=== PATIENT | female | born 1970 | race Caucasian/White ===

== ENCOUNTER → 2020-08-15 | Outpatient (CLI) | payer OTHER ==
[~2020-08-15] MED LIST: ALEVE220 MG PO; BUPROPION HCL200 MG PO; LAMOTRIGINE25 MG PO; SYNTHROID50 MCG PO; TESTOSTERONE CMPD PO; VITAMIN D310 MCG PO
== END ==
LOC: LAB 10:11
PROVIDERS: Orthopaedic Surgery; ATTEND Student in an Organized Health Care Education/Training Program
DX: Z01.812 Encounter for preprocedural laboratory examination (principal); Z20.822 Contact with and (suspected) exposure to COVID-19

== ENCOUNTER 2020-08-16 06:10 | Day surgery (SDC) | payer OTHER ==
[~2020-08-16] VITALS: Ht 157.5 cm; Wt 76.2 kg
[2020-08-16 07:36] VITALS: BP 123/76
[2020-08-16 09:41] VITALS: BP 123/76
--- NOTE | 2020-08-19 10:36 | O ---
[facility] [place] [address] OPERATIVE REPORT Name: SALOME BOUDREAUX Room #: DEP [facility].#: [id number] Admission: 08/16/20 Attend Phys: Schuyler Ingram MD Discharge: 08/16/20 Date of : 70 Report #: [id number] THIS REPORT FOR: cc: FAM - No family physician/PCP FAM - No family physician/PCP Schuyler Ingram MD ~ DOC #: [id number] Schuyler Ingram MD DATE OF SERVICE: 08/16/2020 PREOPERATIVE DIAGNOSIS: Left knee anterior cruciate ligament rupture. POSTOPERATIVE DIAGNOSIS: Left knee anterior cruciate ligament rupture. PROCEDURE: Left knee arthroscopic-assisted anterior cruciate ligament reconstruction utilizing cadaver patellar tendon allograft. SURGEON: Schuyler Ingram MD INDICATIONS: This is still active and athletic 49-year-old female has had multiple knee injuries in the past with a more recent injury a number of months ago. She has clinical and radiographic evidence of rupture of the anterior cruciate ligament and suggestion of mild meniscus damage. She has a sense of knee instability and has elected to go ahead with ACL reconstruction. We have discussed various options and she prefers a cadaver allograft technique. DESCRIPTION OF PROCEDURE: The patient was taken to the operating room where she was placed under general anesthesia. Prophylactic intravenous antibiotics were administered. The left knee and leg were meticulously prepped and draped. A thigh tourniquet was applied and inflated to 300 mmHg. A lateral suprapatellar inflow cannula was placed and the knee was inflated with normal saline. The arthroscope and shaver were introduced through parapatellar tendon approaches. The various compartments were sequentially visualized and documented with arthroscopic photography. The medial compartment reveals good cartilage on the medial femoral condyle and the medial tibial plateau. The medial meniscus appears to be largely intact and stable with only minor fraying along its inner margin and at the posterior horn. These rather minor areas of damage were debrided. No further debridement in the medial compartment was necessary. The lateral compartment reveals also good cartilage on the lateral femoral condyle on the lateral tibial plateau. The lateral meniscus appears to be intact and stable with only minor fraying along its inner margin, very limited debridement, there was required. No other abnormalities in the lateral compartment were identified. The patellofemoral articulation reveals moderate deep grooving in the deepest portion of the trochlear region on the distal femur and mild grade I chondromalacia on the [address] [address] OPERATIVE REPORT Name: CHERELLE BOUDREAUXTIAN Thomas Room #: DEP [facility]#: [id number] Admission: 08/16/20 Attend Phys: Schuyler Ingram MD Discharge: 08/16/20 Date of : 70 Report #: [id number] patella. Very limited debridement in those areas was performed. No other abnormalities in this area were identified. 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 There was some spurring and narrowing of the notch, which was debrided creating a suitable notchplasty. The remnants of the old ACL were debrided and good entry points were localized to the posterior cruciate ligament appears to be intact and functioning nicely. A tibial guidewire was placed bringing the entry point just anterior and lateral to the posterior cruciate ligament insertion site. The tibial tunnel was drilled using a 10 mm cannulated reamer. The knee was then flexed and an Acufex femoral guide placed. The femoral guidewire was placed high and slightly lateral in the notch in appropriate anatomic position. The knee was flexed and the pin was advanced extending the femur at the anterior lateral distal femur. A femoral tunnel was created using a 10 mm acorn cannulated reamer. Sufficient depth was created to accommodate the allograft. The RigidFix outrigger device was then inserted and two RigidFix guide pins were placed at the lateral distal femur. The cadaver allograft was thawed on the back table. It was inspected and cleaned and trimmed slightly. This appears to be an excellent graft with two 30 mm bone blocks measuring 10 mm in diameter and a total length of the allograft at approximately 105 mm. Two guide sutures were placed through drill holes in the leading and trailing bone blocks. The graft was then brought up onto the field and the femoral guidewire was used to bring the guide sutures up through the knee in a retrograde fashion, bringing the sutures out through the anterolateral thigh puncture. The graft was then carefully advanced in a retrograde fashion, bringing the bone blocks nicely into the tunnels. The femoral bone block was seated about 10 mm to a depth of about 40 mm in the femur. This brought the trailing edge of the tibial bone block nicely to about the cortical surface, which then would require no further trimming. The femoral bone block was then secured by advancing 2 RigidFix pins using the outrigger guides. These seated nicely and appeared to be secure. Fixation was tested by vigorously stressing the proximal bone fixation and excellent fixation was confirmed. The knee was passed through a full arc of motion several times to stretch and settle the graft in position. It appeared to be nicely positioned in good isometric position. The tibial bone block was then secured using a 9 mm x 30 mm Yasmine bioabsorbable screw. This was positioned nicely and appeared to have good purchase. The alignment and stability were then assessed both clinically with Rashi and pivot shift maneuvers. There appeared to be excellent stability with a new ACL reconstruction. The fixation at both the femoral and tibial bone blocks appeared to be satisfactory. The guide sutures were removed. The knee was copiously irrigated. The [facility] [address] [place] [address] OPERATIVE REPORT Name: SALOME BOUDREAUX Room #: DEP [facility].#: [id number] Admission: 08/16/20 Attend Phys: Schuyler Ingram MD Discharge: 08/16/20 Date of : 70 Report #: [id number] tourniquet was deflated after a total tourniquet time of 60 minutes. The small incision over the tibial tunnel site was closed using multiple 2-0 Monocryl sutures and 4-0 nylon in the skin. The other arthroscopy punctures were closed with 4-0 nylon. A sterile dressing was applied. The patient was awakened and returned to recovery room in good condition. Schuyler Ingram MD DJC/STD <ELECTRONICALLY SIGNED> By: Schuyler Ingram MD 08/19/20 1036 [id number] Schuyler Ingram MD /nt
== END 2020-08-16 10:45 | disposition home or self-care (01) ==
LOC: OR → TBA 06:10 → OR 06:59
PROVIDERS: ATTEND Orthopaedic Surgery
DX: S83.512A Sprain of anterior cruciate ligament of left knee, initial encounter (principal); S83.282A Other tear of lateral meniscus, current injury, left knee, initial encounter; S83.242A Other tear of medial meniscus, current injury, left knee, initial encounter; M22.42 Chondromalacia patellae, left knee; M25.562 Pain in left knee; G47.30 Sleep apnea, unspecified; E03.9 Hypothyroidism, unspecified; Z98.890 Other specified postprocedural states; Z79.899 Other long term (current) drug therapy; Z87.442 Personal history of urinary calculi; Z87.891 Personal history of nicotine dependence; X58.XXXA Exposure to other specified factors, initial encounter; Y93.89 Activity, other specified; Y92.89 Other specified places as the place of occurrence of the external cause; Y99.8 Other external cause status
CPT/HCPCS: 50010; 50101; 50188; 50386; 50405; 51331; 56525; 56526; 56530; 57103; 57180; 58317; 58577; 58589; 58773; 62110; 62900; 64042; 70005